=== PATIENT | female | born 1990 | race African-American/Black ===

== ENCOUNTER 2019-11-03 13:20 | Emergency (ER) | payer SELFPAY ==
[~2019-11-03] VITALS: Ht 157.5 cm; Wt 108.9 kg
--- NOTE | 2019-11-03 13:29 | NUR ---
ERMD at bedside for MSE
[2019-11-03] MEDS ORDERED: KETOROLAC TROMETHAMINE 30 MG INJ ONE (13:35)
--- NOTE | 2019-11-03 13:40 | NUR ---
Patient discharged to home in stable conditon. Written and verbal after care instructions given. Patient verbalizes understanding of instructions.Pt walked out of ER w/ steady gait.
[2019-11-03 13:41] VITALS: BP 146/101
[2019-11-03] MEDS ORDERED: KETOROLAC TROMETHAMINE 30 MG INJ IM ONE (13:45)
== END 2019-11-03 13:45 | disposition home or self-care (01) ==
LOC: ER 13:20
DX: M54.5 Low back pain (principal); J20.8 Acute bronchitis due to other specified organisms
CPT/HCPCS: 96372; 99283; J1885; A4663